=== PATIENT | female | born 1995 | race Caucasian/White ===

== ENCOUNTER 2023-07-12 19:41 | Emergency (ER) | payer OTHER, SELFPAY ==
[2023-07-12 20:03] VITALS: BP 121/78; PULSE 99; RESP 14; O2SAT 99
[2023-07-12 21:45] VITALS: BP 110/69; PULSE 103; RESP 18; TEMP 36.7; O2SAT 99
[2023-07-12 22:37] LABS: Influenza A QL RT-PCR Negative (Negative); Influenza B QL RT-PCR Negative (Negative); RSV RNA, RT-PCR Negative (Negative); SARS-CoV-2 RNA PCR Negative (Negative)
--- NOTE | 2023-07-12 22:47 | ED.GENADULT ---
HPI - General Adult General Chief complaint: Upper Respiratory Infection Stated complaint: bodyaches Time Seen by Provider: 07/12/23 21:40 Source: patient Mode of arrival: ambulatory Limitations: no limitations History of Present Illness HPI narrative: This is a 28-year-old female who presents to the ED with a chief complaint of viral symptoms and having headache. Patient reports body aches and general lack of appetite. She reports that the headache is frontal and had gradual onset. He endorses nausea but no vomiting. Denies neck pain, stiffness, fevers, chills, diarrhea, chest pain, shortness of breath, cough. Does endorse URI symptoms. Related Data Allergies Allergy/AdvReac Type Severity Reaction Status Date / Time No Known Allergies Allergy Verified 07/12/23 21:43 Review of Systems Review of Systems: All systems as dictated in HPI Exam Narrative: GENERAL: Well-appearing, well-nourished, and in no acute distress. HEAD: Normocephalic, atraumatic. EYES: PERRLA and EOMI. ENT: Nares clear, no rhinorrhea or epistaxis. Mucous membranes moist. Oropharynx without tonsillar hypertrophy exudate or other lesions. NECK: Supple. No adenopathy or masses. CHEST: No respiratory distress. Clear to auscultation. No wheezes rales or rhonchi HEART: Regular rate and rhythm. No murmur heard. Normal peripheral pulses. ABDOMEN: Soft, nontender, nondistended, normal active bowel sounds. MSK: Normal range of motion. No edema. SKIN: Warm, dry, no rash. NEURO: Alert and oriented x3. No focal deficits. PSYCH: Normal mood and affect. Course Vital Signs Vital signs: Vital Signs Pulse Rate 99 07/12/23 20:03 Respiratory Rate 14 07/12/23 20:03 Blood Pressure 121/78 07/12/23 20:03 Pulse Oximetry 99 07/12/23 20:03 Oxygen Delivery Room Air 07/12/23 20:03 Temperature 98.0 F 07/12/23 21:45 Pulse Rate 95 07/13/23 00:15 Respiratory Rate 15 07/13/23 00:15 Blood Pressure 109/78 07/13/23 00:15 Pulse Oximetry 98 07/13/23 00:15 Oxygen Delivery Room Air 07/12/23 21:45 Medical Decision Making [facility] Narrative Medical decision making narrative: This is a 28-year-old female who presents to the ED with chief complaint of headache and viral symptoms. Vitals are normal. Exam is benign. COVID and flu swabs are negative. Headache was gradual in onset and consistent with migraine symptoms. She was given a headache cocktail with great relief. She feels ready to go home. Pt will be discharged in stable condition. Return precautions given and supportive measures discussed. Pt is understanding and agreeable with plan for discharge and follow-up with PCP. Vital Signs Vital Signs: Vital Signs Pulse Rate 99 07/12/23 20:03 Respiratory Rate 14 07/12/23 20:03 Blood Pressure 121/78 07/12/23 20:03 Pulse Oximetry 99 07/12/23 20:03 Oxygen Delivery Room Air 07/12/23 20:03 Temperature 98.0 F 07/12/23 21:45 Pulse Rate 95 07/13/23 00:15 Respiratory Rate 15 07/13/23 00:15 Blood Pressure 109/78 07/13/23 00:15 Pulse Oximetry 98 07/13/23 00:15 Oxygen Delivery Room Air 07/12/23 21:45 Lab Data Labs: Lab Results 07/12/23 Range/Units 21:55 Influenza A (RT-PCR) Negative (Negative) Influenza B (RT-PCR) Negative (Negative) RSV (RT-PCR) Negative (Negative) SARS-CoV-2 RNA (RT-PCR) Negative (Negative) Discharge Plan Discharge Clinical Impression: Headache Patient Disposition: Home, Self-Care Condition: Stable Instructions: Antibiotic Form Additional Instructions: Your exam today is reassuring. Please follow-up with your regular doctor for any ongoing headaches. If you have any new or worsening symptoms please return to the ER for further evaluation. Follow-up/Referrals: Thelma,Madeleine Pisano MD [Primary Care Provider] - Stand Alone Forms: Work/School Release IP Time of Disposition: 23:54
[2023-07-12] MEDS: SODIUM CHLORIDE 0.9% IV 1,000 ML 999 ML IV CONT (23:02)
[2023-07-12] MEDS: diphenhydrAMINE HCl INJ 50 MG/ML VIAL 25 MG IV PUSH (23:02)
[2023-07-12] MEDS: PROCHLORPERAZINE EDISYLATE 10 MG/2 ML VIAL IV PUSH (23:03)
[2023-07-12] MEDS: KETOROLAC 15 MG/ML VIAL (*BKC) IV PUSH (23:10)
[2023-07-13 00:15] VITALS: BP 109/78; PULSE 95; RESP 15; O2SAT 98
== END 2023-07-13 00:17 | disposition home or self-care (01) ==
PROVIDERS: Emergency Provider Physician Assistant; PCP Family Medicine
DX: R51.9 Headache, unspecified (principal); Z20.822 Contact with and (suspected) exposure to COVID-19
CPT/HCPCS: 87637; 96361; 96374; 96375; 99284; J0780; J1200; J1885; J7030

== ENCOUNTER 2024-07-20 20:46 | Emergency (ER) | payer OTHER, SELFPAY ==
[2024-07-20 20:55] VITALS: TEMP 36.3
[2024-07-20 20:59] VITALS: TEMP 36.6
--- NOTE | 2024-07-20 21:39 | ED_ITS ---
HPI - Dental/Oral General Chief complaint: Dental/Oral Stated complaint: massive abcess right side of mouth Time Seen by Provider: 07/20/24 21:32 Source: patient Mode of arrival: ambulatory Limitations: no limitations History of Present Illness HPI Narrative: This is a 29-year-old female who presents to the ED for chief complaint of possible tooth abscess. Reports that she has had increasing pain over the past week. States that she feels the swelling in her right lower jaw. She has noted A decaying tooth on the right side. the right side. denies trismus, drooling, voice. Denies fevers, chills, Nausea or vomiting. Does endorse history of diabetes with last A1c greater than 10 Related Data Allergies Allergy/AdvReac Type Severity Reaction Status Date / Time No Known Allergies Allergy Verified 07/12/23 21:43 Review of Systems Review of Systems: All systems as dictated in HPI Exam Narrative: GENERAL: Well-appearing, well-nourished, and in no acute distress. HEAD: Normocephalic, atraumatic. EYES: PERRLA and EOMI. ENT: right lower premolar obviously decayed. Mild right-sided facial swelling to the right lower jaw. No overlying skin erythema. No fluctuance or induration. Floor of the mouth intact. No trismus, drooling. No muffled voice Nares clear, no rhinorrhea or epistaxis. Mucous membranes moist. Oropharynx without tonsillar hypertrophy exudate or other lesions. NECK: Supple. No adenopathy or masses. CHEST: No respiratory distress. Clear to auscultation. No wheezes rales or rhonchi HEART: Regular rate and rhythm. No murmur heard. Normal peripheral pulses. ABDOMEN: Soft, nontender, nondistended, normal active bowel sounds. MSK: Normal range of motion. No edema. SKIN: Warm, dry, no rash. NEURO: Alert and oriented x4. No focal deficits. PSYCH: Normal mood and affect. Course Vital Signs Vital signs: Vital Signs Temperature 97.3 F L 07/20/24 20:55 Temperature 97.8 F 07/20/24 20:59 Pulse Rate 72 07/20/24 22:45 Respiratory Rate 18 07/20/24 22:45 Blood Pressure 127/82 07/20/24 22:45 Pulse Oximetry 98 07/20/24 22:45 MDM - Dental/Oral MDM Narrative Medical decision making narrative: This is a 29 yo female who presents to the ED for chief complaint of right-sided dental pain with possible abscess. Vitals are normal. Exam shows mild right- sided facial swelling. Floor of the mouth intact. No evidence of Benji's angina. Dental decay is noted, especially on the right side. No discrete or focal abscess that I would be able to drain today. Lab work shows mildly elevated white count of 12.4. Serum glucose is 379. Emmanuel joyner has been trying to address her diabetes her doctor. She was given Toradol and Unasyn here in the ED. strongly encouraged the patient to get blood sugars under control as this will help with fighting the infection. Rx for Augmentin given. Patient will be discharged in stable condition. Supportive measures discussed and return precautions given. Patient is understanding and agreeable with plan for discharge with PCP follow-up. Lab Data 07/20/24 21:52 07/20/24 21:52 Labs: Lab Results 07/20/24 Range/Units 21:52 WBC 12.4 H (4.5-10.0) K/mm3 RBC 4.77 (4.2-5.4) M/mm3 Hgb 14.7 (12.0-15.0) g/dL Hct 42.8 (37.0-47.0) % MCV 89.7 (80-100) fl MCH 30.8 (26-34) pg MCHC 34.3 (32-36) g/dl RDW 11.9 (11.5-14.5) % Plt Count 369 (150-375) k/mm3 MPV 9.3 (7.4-10.4) fl Immature Gran % (Auto) 0.4 (0-0.5) % Neut % (Auto) 61.8 (45.5-73.1) % Lymph % (Auto) 29.6 (18.3-44.2) % [place] % (Auto) 6.5 (2.6-8.5) % Eos % (Auto) 1.3 (0-4.4) % Baso % (Auto) 0.4 (0.2-1.2) % Lymph # (Auto) 3.66 H (0.9-3.2) K/mm3 [place] # (Auto) 0.8 H (0.1-0.6) K/mm3 Eos # (Auto) 0.2 (0-0.3) K/mm3 Baso # (Auto) 0.1 (0.0-0.1) K/mm3 Abs Immat Gran (auto) 0.05 H (0.00-0.031) K/mm3 Absolute Neuts (auto) 7.7 H (1.3-6.7) K/mm3 Absolute Nucleated RBC 0.000 (0.0-0.012) K/mm3 Nucleated RBC % 0.0 (0.0-0.2) % Sodium 134 L (137-145) mmol/L Potassium 4.1 (3.4-5.0) mmol/L Chloride 96 L (98-107) mmol/L Carbon Dioxide 23 (22-30) mmol/L Anion Gap 15 H (4-12) mmol/L BUN 15 (7-17) mg/dL Creatinine 0.90 (0.7-1.0) mg/dL Estim Creat Clear Calc 56 ml/min Estimated GFR > 60 (59 - ) Glucose 379 H (65-110) mg/dL Calcium 9.3 (8.4-10.2) mg/dL Total Bilirubin 0.2 (0.2-1.3) mg/dL AST 28 (14-36) U/L ALT 40 H (6-35) U/L Alkaline Phosphatase 67 (38-126) U/L Total Protein 8.0 (6.3-8.2) g/dL Albumin 4.4 (3.5-5.1) g/dL Discharge Plan Discharge Clinical Impression: Dental abscess Patient Disposition: Home, Self-Care Condition: Stable Instructions: Antibiotic Form Additional Instructions: Your exam and workup today show evidence of dental infection. Please take antibiotics as prescribed. Use regular Tylenol and ibuprofen for pain control. Symptoms should resolve over the next few days. If you have any new or worsening symptoms please return to the ER for further evaluation. Prescriptions: New amoxicillin-pot clavulanate 875-125 mg tablet 1 tablet PO Q12H Qty: 14 0RF Follow-up/Referrals: Trish,EMMANUEL Bruno [Primary Care Provider] - Stand Alone Forms: Work/School Release IP Time of Disposition: 22:27
[2024-07-20 21:58] LABS: Basophils Absolute Auto 0.1 K/mm3 (0.0-0.1); Basophils Percent Auto 0.4 % (0.2-1.2); Eosinophils Absolute Auto 0.2 K/mm3 (0-0.3); Eosinophils Percent Auto 1.3 % (0-4.4); Hematocrit 42.8 % (37.0-47.0); Hemoglobin 14.7 g/dL (12.0-15.0); Immature Granulocyte Absolute 0.05 K/mm3 (0.00-0.031); Immature Granulocyte Percent A 0.4 % (0-0.5); Lymphocytes Absolute Auto 3.66 K/mm3 (0.9-3.2); Lymphocytes Percent Auto 29.6 % (18.3-44.2); Mean Corpuscular HGB Conc 34.3 g/dl (32-36); Mean Corpuscular Hemoglobin 30.8 pg (26-34); Mean Corpuscular Volume 89.7 fl (80-100); Mean Platelet Volume 9.3 fl (7.4-10.4); Monocytes Absolute Auto 0.8 K/mm3 (0.1-0.6); Monocytes Percent Auto 6.5 % (2.6-8.5); Neutrophils Absolute Auto 7.7 K/mm3 (1.3-6.7); Neutrophils Percent Auto 61.8 % (45.5-73.1); Platelet Count Result 369 k/mm3 (150-375); Red Blood Count 4.77 M/mm3 (4.2-5.4); Red Cell Distribution Width 11.9 % (11.5-14.5); White Blood Count 12.4 K/mm3 (4.5-10.0)
[2024-07-20] MEDS: KETOROLAC 15 MG/ML VIAL (*BKC) 30 MG IV PUSH (22:00)
[2024-07-20] MEDS: AMPICILLIN SULB 3 GM/NS 100 ML 3 GM/100 ML VIAL IVPB (22:01)
[2024-07-20 22:22] LABS: Alanine Aminotransferase 40 U/L (6-35); Albumin Level 4.4 g/dL (3.5-5.1); Alkaline Phosphatase 67 U/L (38-126); Anion Gap 15 mmol/L (4-12); Aspartate Amino Transferase 28 U/L (14-36); Bilirubin,Total 0.2 mg/dL (0.2-1.3); Blood Urea Nitrogen 15 mg/dL (7-17); Calcium 9.3 mg/dL (8.4-10.2); Carbon Dioxide 23 mmol/L (22-30); Chloride 96 mmol/L (98-107); Estimated CRCL calculation 56 ml/min; Estimated Glomerular Filt Rate > 60; Glucose 379 mg/dL (65-110); Potassium 4.1 mmol/L (3.4-5.0); Sodium 134 mmol/L (137-145)
[2024-07-20 22:45] VITALS: BP 127/82; PULSE 72; RESP 18; O2SAT 98
== END 2024-07-20 22:54 | disposition home or self-care (01) ==
PROVIDERS: Emergency Provider Physician Assistant; PCP Physician Assistant
DX: K04.7 Periapical abscess without sinus (principal)
CPT/HCPCS: 36415; 80053; 85025; 96365; 96375; 99284; J0295; J1885